=== PATIENT | female | born 1955 | race Caucasian/White ===

== ENCOUNTER 2022-01-19 06:33 | Day surgery (SDC) | payer OTHER, BC ==
[2022-01-14 12:57] VITALS: BMI 19.8
[2022-01-19] MEDS ORDERED: TROPICAMIDE 1% OPHTH SOLN 15 ML BOTTLE ONE (06:51)
[2022-01-19] MEDS ORDERED: TROPICAMIDE 1% OPHTH SOLN 15 ML BOTTLE OS ONE ×3 (07:00→07:10)
[2022-01-19] MEDS ORDERED: OFLOXACIN 0.3% OPHTHALMIC SOLUTION 5 ML BOTTLE OS ONE ×3 (07:00→07:10)
[2022-01-19] MEDS ORDERED: KETOROLAC TROMETHAMINE 0.5% EYE DROP 1 DROP DROPS OS ONE ×3 (07:00→07:10)
[2022-01-19] MEDS ORDERED: PHENYLEPHRINE 2.5% OPHTH SOLN 15 ML BOTTLE OS ONE ×3 (07:00→07:10)
[2022-01-19] MEDS ORDERED: CYCLOPENTOLATE HCL 1% OPHTH SOLN 2 ML BOTTLE OS ONE ×3 (07:00→07:10)
[2022-01-19] MEDS ORDERED: MIDAZOLAM HCL 2 MG/2 ML SINGLE DOSE VIAL ONE ×2 (07:06→08:06)
[2022-01-19] MEDS ORDERED: PROPOFOL 20 ML ONE (07:06)
[2022-01-19] MEDS ORDERED: BACITRACIN/POLYMYXIN OPH OINT 3.5 GM TUBE ONE (07:08)
[2022-01-19] MEDS ORDERED: BETAXOLOL HCL 0.25% OPHTHALMIC 10 ML DROPSBTL ONE (07:08)
[2022-01-19] MEDS ORDERED: EPINEPHrine/PF 1 MG/1 ML (1:1,000) AMPULE ONE (07:08)
[2022-01-19] MEDS ORDERED: PHENYLEPHRINE/KETOROLAC 4 ML VIAL IO ONE (07:08)
[2022-01-19] MEDS ORDERED: NEO/POLYMYX B SULF/DEXAMETH OPHTHALMIC 5ML BOTTLE ONE (07:09)
[2022-01-19] MEDS ORDERED: ACETYLCHOLINE 1:100 INTRA-OCUL 20 MG/2 ML KIT ONE (07:09)
[2022-01-19] MEDS ORDERED: TETRACAINE 0.5% OPHTH SOLN 2 ML BOTTLE ONE (07:09)
[2022-01-19] MEDS ORDERED: BSS (NA/CA/MG/K) BALANCED SALT SOLUTION OPHTH SOLN 15 ML BOTTLE ONE (07:09)
[2022-01-19] MEDS ORDERED: POVIDONE-IODINE 5% OPHTHALMIC PREP 30 ML SOLUTION ONE (07:09)
[2022-01-19] MEDS ORDERED: EPI-SHUGARCAINE (EPINEPHRINE 0.025% & LIDOCAINE-PF 0.75%) 4ML ONE (07:09)
[2022-01-19] MEDS ORDERED: CYCLOPENTOLATE HCL 1% OPHTH SOLN 2 ML BOTTLE OS SCH (08:00)
[2022-01-19] MEDS ORDERED: KETOROLAC TROMETHAMINE 0.5% EYE DROP 1 DROP DROPS OS SCH (08:00)
[2022-01-19] MEDS ORDERED: OFLOXACIN 0.3% OPHTHALMIC SOLUTION 5 ML BOTTLE OS SCH (08:00)
[2022-01-19] MEDS ORDERED: TROPICAMIDE 1% OPHTH SOLN 15 ML BOTTLE OS SCH (08:00)
[2022-01-19] MEDS ORDERED: PHENYLEPHRINE 2.5% OPHTH SOLN 15 ML BOTTLE OS SCH (08:00)
[2022-01-19] MEDS ORDERED: ACETAMINOPHEN 325 MG TABLET (FP) PO PRN (08:34)
[2022-01-19 09:04] VITALS: RESP 16; TEMP 98.4
[2022-01-19 09:08] VITALS: BP 111/71; PULSE 74
== END 2022-01-19 09:20 | disposition home or self-care (01) ==
LOC: FASU 06:33
PROVIDERS: ATTEND Ophthalmology
PROC: 08RK3JZ Replacement of Left Lens with Synthetic Substitute, Percutaneous Approach (ICD-10-PCS; principal; 2022-01-19 08:13)
DX: H25.12 Age-related nuclear cataract, left eye (principal)
CPT/HCPCS: 66984; V2632; J1097